=== PATIENT | female | born 1990 | race Two or more races ===

== ENCOUNTER 2017-02-16 19:55 | Emergency (ER) | payer SELFPAY ==
[~2017-02-16] VITALS: Ht 165.1 cm; Wt 76.2 kg
[2017-02-16 20:05] VITALS: BP 121/71
[2017-02-16] MEDS ORDERED: Dicyclomine HCl 10mg/5ml oral soln ORAL ONE (20:15)
[2017-02-16] MEDS ORDERED: Metoclopramide 10mg/2ml Inj IVP ONE (20:15)
[2017-02-16] MEDS ORDERED: Lidocaine 2% Visc 15ml soln ORAL ONE (20:15)
[2017-02-16] MEDS ORDERED: Mylanta II UD 30ml ORAL ONE (20:15)
[2017-02-16 20:45] LABS: BASOPHILS % (AUTO) 0.9 % (0.0-2.0); EOSINOPHILS % (AUTO) 2.8 % (0.0-3.0); MEAN CORPUSCULAR HEMOGLOBIN 32.8 PG (27.0-31.0); MEAN CORPUSCULAR HGB CONC 35.3 G/DL (32.0-36.0); MEAN CORPUSCULAR VOLUME 93 FL (80-99); MEAN PLATELET VOLUME 6.8 FL (6.5-10.1); MONOCYTES % (AUTO) 6.2 % (1.0-10.0); NEUTROPHILS % (AUTO) 52.2 % (45.0-75.0); PLATELET COUNT 268 K/UL (150-450); RED BLOOD COUNT 4.39 M/UL (4.20-5.40); RED CELL DISTRIBUTION WIDTH 10.7 % (11.6-14.8); WHITE BLOOD COUNT 7.4 K/UL (4.8-10.8)
[2017-02-16 20:51] LABS: APPEARANCE,URINE CLEAR; KETONES,URINE NEGATIVE (NEGATIVE); LEUKOCYTE ESTERASE ,URINE NEGATIVE (NEGATIVE); NITRITE,URINE NEGATIVE (NEGATIVE); PH,URINE 7 (4.5-8.0); PROTEIN,URINE NEGATIVE (NEGATIVE); UROBILINOGEN,URINE NORMAL MG/DL (0.0-1.0)
[2017-02-16 21:02] LABS: ALANINE AMINOTRANSFERASE 18 U/L (3-33); ALBUMIN/GLOBULIN RATIO 1.2 (1.0-2.7); ANION GAP 15 (5-15); ASPARTATE AMINO TRANSFERASE 16 U/L (5-40); CALCIUM 9.6 mg/dL (8.6-10.2); CARBON DIOXIDE 20 mEQ/L (20-30); CHLORIDE 100 mEQ/L (98-107); CREATININE 0.8 mg/dL (0.5-0.9); GLOMERULAR FILTRATION RATE > 60 mL/min (>60); HEMOLYSIS 4; LIPASE 52 U/L (< 60); POTASSIUM 3.4 mEQ/L (3.4-4.9); SODIUM 135 mEQ/L (135-145); TOTAL PROTEIN 7.5 g/dL (6.6-8.7)
[2017-02-16] MEDS ORDERED: ZOFRAN ODT4 MG ORAL (21:36)
[2017-02-16] MEDS ORDERED: PRILOSEC OTC20 MG ORAL (21:36)
--- NOTE | 2017-02-16 21:37 | Emergency Room Report ---
History of Present Illness General Chief Complaint: Abdominal Pain Source: Patient Present Illness HPI 26 y/o female c/o epigastric pain x 1.5 hours. Assoc sxs include epigastric pain , bloating, acid reflux and nausea. States she was eating mariscos and drinking beer prior to onset of sxs. States that she has hx of similar attacks in the past and has been worked up by physicians in [place] and told she had gastritis. States she takes omeprazole but has not taken it recently having just moved to [place] from [place] 4 months ago. Denies any current f/c/d, vomiting, dysuria , flank pain, body aches, RLQ pain, vag discharge, vag bleeding, back pain, neck pain, photophobia, phonophobia, CP, SOB or headache. Allergies: Coded Allergies: No Known Allergies (Unverified , 02/16/17) Patient History Limited by: language barrier Past Medical History: see triage record Past Surgical History: none Last Menstrual Period: FEB 05 Now: No Reviewed Nursing Documentation: PMH: Agreed, PSxH: Agreed Review of Systems All Other Systems: negative except mentioned in HPI Physical Exam Vital Signs Date Time Temp Pulse Resp B/P (MAP) Pulse Ox O2 Delivery O2 Flow Rate FiO2 02/16/17 20:01 98.1 83 18 119/73 98 Room Air Sp02 EP Interpretation: reviewed, normal General Appearance: no apparent distress, alert, GCS 15, non-toxic Head: normocephalic, atraumatic Eyes: bilateral eye normal inspection, bilateral eye PERRL ENT: normal ENT inspection Neck: normal inspection Respiratory: chest non-tender, lungs clear, normal breath sounds, speaking full sentences Cardiovascular #1: regular rate, rhythm, no edema Gastrointestinal: normal bowel sounds, non tender, soft, non-distended, no guarding, no rebound, other - Neg McBurney, Neg Lyn Genitourinary: normal inspection, no CVA tenderness Neurologic: alert, oriented x3, responsive, motor strength/tone normal, sensory intact, speech normal Skin: normal color, no rash, warm/dry, well hydrated Lymphatic: no adenopathy Medical Decision Making PA Attestation Dr. Das is my supervising physician with whom patient management has been discussed with. ER Course Pt. presents to the ED c/o abdominal pain. Ddx considered but are not limited to viral syndrome, , appendicitis, diverticulitis, constipation, gastroenteritis, abdominal hernia, pancreatitis, cholecystitis, nephrolithiasis, and ovarian torsion. Vital signs: are WNL, pt. is afebrile H&PE are most consistent with epigastric pain, hx of gastritis ORDERS: CBC, CMP, Lipase, UA, Urine Preg ED INTERVENTIONS: GI Cocktail, Reglan DISCHARGE: At this time pt. is stable for d/c to home. Will provide printed patient care instructions, and any necessary prescriptions. Care plan and follow up instructions have been discussed with the patient prior to discharge. Laboratory Tests Test 02/16/17 20:20 White Blood Count 7.4 K/UL (4.8-10.8) Red Blood Count 4.39 M/UL (4.20-5.40) Hemoglobin 14.4 G/DL (12.0-16.0) Hematocrit 40.7 % (37.0-47.0) Mean Corpuscular Volume 93 FL (80-99) Mean Corpuscular Hemoglobin 32.8 PG (27.0-31.0) H Mean Corpuscular Hemoglobin Concent 35.3 G/DL (32.0-36.0) Red Cell Distribution Width 10.7 % (11.6-14.8) L Platelet Count 268 K/UL (150-450) Mean Platelet Volume 6.8 FL (6.5-10.1) Neutrophils (%) (Auto) 52.2 % (45.0-75.0) Lymphocytes (%) (Auto) 38.0 % (20.0-45.0) Monocytes (%) (Auto) 6.2 % (1.0-10.0) Eosinophils (%) (Auto) 2.8 % (0.0-3.0) Basophils (%) (Auto) 0.9 % (0.0-2.0) Urine Color Pale yellow Urine Appearance Clear Urine pH 7 (4.5-8.0) Urine Specific [place] 1.015 (1.005-1.035) Urine Protein Negative (NEGATIVE) Urine Glucose (UA) Negative (NEGATIVE) Urine Ketones Negative (NEGATIVE) Urine Occult Blood Negative (NEGATIVE) Urine Nitrite Negative (NEGATIVE) Urine Bilirubin Negative (NEGATIVE) Urine Urobilinogen Normal MG/DL (0.0-1.0) Urine Leukocyte Esterase Negative (NEGATIVE) Urine HCG, Qualitative Negative Sodium Level 135 mEQ/L (135-145) Potassium Level 3.4 mEQ/L (3.4-4.9) Chloride Level 100 mEQ/L (98-107) Carbon Dioxide Level 20 mEQ/L (20-30) Anion Gap 15 (5-15) Blood Urea Nitrogen 6 mg/dL (7-23) L Creatinine 0.8 mg/dL (0.5-0.9) Estimate Glomerular Filtration Rate > 60 mL/min (>60) Glucose Level 120 mg/dL (74-106) H Calcium Level 9.6 mg/dL (8.6-10.2) Total Bilirubin 0.3 mg/dL (0.0-1.2) Aspartate Amino Transferase (AST) 16 U/L (5-40) Alanine Aminotransferase (ALT) 18 U/L (3-33) Alkaline Phosphatase 47 U/L (35-104) Total Protein 7.5 g/dL (6.6-8.7) Albumin 4.2 g/dL (3.5-5.2) Globulin 3.3 g/dL Albumin/Globulin Ratio 1.2 (1.0-2.7) Lipase 52 U/L (< 60) Last Vital Signs Date Time Temp Pulse Resp B/P (MAP) Pulse Ox O2 Delivery O2 Flow Rate FiO2 02/16/17 20:05 98.2 74 17 121/71 99 Room Air Disposition: HOME, SELF-CARE Condition: Improved Scripts Omeprazole Magnesium (PRILOSEC OTC) 20 Mg Tablet.dr 20 MG ORAL DAILY for 14 Days, #14 TAB Prov: ARIEL GONZALEZ P.A. 02/16/17 Ondansetron Odt* (ZOFRAN ODT*) 4 Mg Tab.rapdis 4 MG ORAL Q8H Y for Nausea & Vomiting, #20 TAB 0 Refills Prov: LILIAM GONZALEZEEM P.A. 02/16/17 Referrals: NOT CHOSEN IPA/MD,REFERRING (PCP) Patient Instructions: Abdominal Pain, Adult, Gastritis, Adult Additional Instructions: Take medication as directed. Patient instructed to stay well hydrated and to use a liquid diet and then progress to soft bland diet as tolerated before reverting back to a regular diet. Patient Education was given to the patient. Patient advised if irreretractible pain, rectal bleeding, or no BM to go to ER immediately. Advised patient to raise the head of your bed by 6 to 8 inches (for example, by putting blocks of wood under 2 legs of the bed or a Styrofoam wedge under the mattress). Avoid foods that make your symptoms worse (examples include coffee, chocolate, alcohol, peppermint, and fatty foods). Cut down on the amount of alcohol you drink. Stop smoking, if you smoke. Eat a bunch of small meals each day, rather than 2 or 3 big meals. Avoid lying down for 3 hours after a meal Antacids and surface acting agents can relieve mild symptoms, but they work only for a short time. Histamine blockers are stronger and last longer than antacids and surface acting agents. You can buy antacids and most histamine blockers without a prescription. ARIEL GONZALEZ Feb 16, 2017 21:36
[2017-02-16 21:45] VITALS: BP 125/74
[2017-02-16 21:50] VITALS: BP 125/74
== END 2017-02-16 21:50 | disposition home or self-care (01) ==
LOC: EMR 21:07
DX: R10.13 Epigastric pain (principal)
CPT/HCPCS: 36415; 80053; 81003; 81025; 83690; 85025; 96361; 96374; 99284; J2765; J7040